=== PATIENT | male | born 1960 | race Caucasian/White ===

== ENCOUNTER → 2018-01-21 | Outpatient (CLI) | payer OTHER ==
[2018-01-21 08:12] LABS: ALANINE AMINOTRANSFERASE 94 U/L (21-72); ALKALINE PHOSPHATASE 76 U/L (38-126); ASPARTATE AMINO TRANSFERASE 37 U/L (17-59); BILIRUBIN,DIRECT 0.3 mg/dL (0.0-0.4); BILIRUBIN,TOTAL 0.7 mg/dL (0.2-1.3); CHOLESTEROL 158.67 mg/dL (0-200); CREATINE KINASE 97 U/L (55-170); TOTAL PROTEIN 6.6 g/dL (6.3-8.2); TRIGLYCERIDES 240 mg/dL (<150)
[2018-01-21 08:23] LABS: DIRECT LDL 90 mg/dL (<100)
== END ==
LOC: LAB 07:27
PROVIDERS: ATTEND Internal Medicine Cardiovascular Disease
DX: E78.2 Mixed hyperlipidemia (principal); R25.2 Cramp and spasm; Z79.899 Other long term (current) drug therapy
CPT/HCPCS: 36415; 80061; 80076; 82550

== ENCOUNTER → 2018-03-18 | Outpatient (CLI) | payer OTHER ==
[2018-03-18 07:07] LABS: ALANINE AMINOTRANSFERASE 89 U/L (21-72); ALBUMIN 4.1 g/dL (3.5-5.0); ALKALINE PHOSPHATASE 89 U/L (38-126); ASPARTATE AMINO TRANSFERASE 42 U/L (17-59); BILIRUBIN,DIRECT 0.3 mg/dL (0.0-0.4); BILIRUBIN,TOTAL 0.8 mg/dL (0.2-1.3); CHOLESTEROL 102.94 mg/dL (0-200); TOTAL PROTEIN 6.7 g/dL (6.3-8.2); TRIGLYCERIDES 153 mg/dL (<150)
[2018-03-18 07:18] LABS: DIRECT LDL 47 mg/dL (<100)
[2018-03-18 07:20] LABS: VLDL CHOLESTEROL 30.6 mg/dL (10-31)
== END ==
LOC: LAB 06:11
PROVIDERS: ATTEND Internal Medicine Cardiovascular Disease
DX: E78.2 Mixed hyperlipidemia (principal); R94.5 Abnormal results of liver function studies
CPT/HCPCS: 36415; 80061; 80076

== ENCOUNTER → 2018-06-11 | Outpatient (CLI) | payer OTHER ==
[2018-06-11 09:46] LABS: ALANINE AMINOTRANSFERASE 64 U/L (21-72); ALKALINE PHOSPHATASE 88 U/L (38-126); ANION GAP 9 (5-19); ASPARTATE AMINO TRANSFERASE 34 U/L (17-59); BILIRUBIN,DIRECT 0.3 mg/dL (0.0-0.4); BILIRUBIN,TOTAL 0.9 mg/dL (0.2-1.3); BLOOD UREA NITROGEN 16 mg/dL (7-20); CALCIUM 9.5 mg/dL (8.4-10.2); CARBON DIOXIDE 30 mmol/L (22-30); CHLORIDE 105 mmol/L (98-107); CHOLESTEROL 83.89 mg/dL (0-200); GLUCOSE 91 mg/dL (75-110); POTASSIUM 4.2 mmol/L (3.6-5.0); SODIUM 144.4 mmol/L (137-145); TOTAL PROTEIN 6.5 g/dL (6.3-8.2); TRIGLYCERIDES 120 mg/dL (<150)
[2018-06-11 09:57] LABS: DIRECT LDL 53 mg/dL (<100)
== END ==
LOC: LAB 08:35
PROVIDERS: ATTEND Internal Medicine Cardiovascular Disease
DX: E78.2 Mixed hyperlipidemia (principal); I10 Essential (primary) hypertension; Z79.899 Other long term (current) drug therapy
CPT/HCPCS: 36415; 80048; 80061; 80076

== ENCOUNTER → 2018-06-18 | Outpatient (CLI) | payer OTHER ==
[2018-06-18 10:20] LABS: HEMOGLOBIN 15.7 g/dL (13.5-17.0); MEAN CORPUSCULAR HEMOGLOBIN 30.9 pg (27.0-33.4); MEAN CORPUSCULAR HGB CONC 34.1 g/dL (32.0-36.0); MEAN CORPUSCULAR VOLUME 91 fl (80-97); PLATELET COUNT 207 10^3/uL (150-450); RED BLOOD COUNT 5.07 10^6/uL (4.35-5.55); RED CELL DISTRIBUTION WIDTH 14.6 % (11.5-14.0); WHITE BLOOD COUNT 9.1 10^3/uL (4.0-10.5)
[2018-06-18 10:23] LABS: APPEARANCE,URINE CLEAR; BILIRUBIN,URINE NEGATIVE (NEGATIVE); COLOR,URINE YELLOW; GLUCOSE, URINE NEGATIVE (NEGATIVE); KETONES,URINE TRACE mg/dL (NEGATIVE); LEUKOCYTE ESTERASE,URINE NEGATIVE (NEGATIVE); NITRITE,URINE NEGATIVE (NEGATIVE); PROTEIN,URINE NEGATIVE (NEGATIVE); URINE SPECIFIC GRAVITY 1.011; UROBILINOGEN,URINE NEGATIVE mg/dL (<2.0)
[2018-06-18 10:48] LABS: ALANINE AMINOTRANSFERASE 85 U/L (21-72); ALBUMIN 4.4 g/dL (3.5-5.0); ALKALINE PHOSPHATASE 108 U/L (38-126); ANION GAP 13 (5-19); ASPARTATE AMINO TRANSFERASE 43 U/L (17-59); BILIRUBIN,DIRECT 0.3 mg/dL (0.0-0.4); BILIRUBIN,TOTAL 0.8 mg/dL (0.2-1.3); BLOOD UREA NITROGEN 14 mg/dL (7-20); CALCIUM 9.7 mg/dL (8.4-10.2); CARBON DIOXIDE 29 mmol/L (22-30); CHLORIDE 102 mmol/L (98-107); CREATINE KINASE 44 U/L (55-170); GLUCOSE 93 mg/dL (75-110); SODIUM 144.2 mmol/L (137-145); TOTAL PROTEIN 7.1 g/dL (6.3-8.2); URIC ACID 5.2 mg/dL (3.5-8.5)
[2018-06-18 10:53] LABS: POTASSIUM 4.3 mmol/L (3.6-5.0)
== END ==
LOC: LAB 09:53
PROVIDERS: ATTEND Internal Medicine Cardiovascular Disease
DX: I82.409 Acute embolism and thrombosis of unspecified deep veins of unspecified lower extremity (principal); E66.9 Obesity, unspecified; Z71.3 Dietary counseling and surveillance; Z79.899 Other long term (current) drug therapy; Z79.01 Long term (current) use of anticoagulants
CPT/HCPCS: 36415; 80048; 80076; 81001; 82272; 82306; 82550; 83036; 83735; 84443; 84550; 85027; 85730

== ENCOUNTER → 2018-10-06 | Outpatient (CLI) | payer OTHER ==
[2018-10-06 07:42] LABS: HEMATOCRIT 43.4 % (37.9-51.0); HEMOGLOBIN 14.8 g/dL (13.5-17.0); MEAN CORPUSCULAR HEMOGLOBIN 31.1 pg (27.0-33.4); MEAN CORPUSCULAR HGB CONC 34.2 g/dL (32.0-36.0); MEAN CORPUSCULAR VOLUME 91 fl (80-97); PLATELET COUNT 194 10^3/uL (150-450); RED BLOOD COUNT 4.77 10^6/uL (4.35-5.55); RED CELL DISTRIBUTION WIDTH 14.6 % (11.5-14.0); WHITE BLOOD COUNT 8.7 10^3/uL (4.0-10.5)
[2018-10-06 08:13] LABS: ALANINE AMINOTRANSFERASE 62 U/L (21-72); ALBUMIN 4.3 g/dL (3.5-5.0); ALKALINE PHOSPHATASE 82 U/L (38-126); ANION GAP 10 (5-19); ASPARTATE AMINO TRANSFERASE 32 U/L (17-59); BILIRUBIN,DIRECT 0.2 mg/dL (0.0-0.4); BILIRUBIN,TOTAL 0.6 mg/dL (0.2-1.3); BLOOD UREA NITROGEN 27 mg/dL (7-20); CALCIUM 10.7 mg/dL (8.4-10.2); CARBON DIOXIDE 29 mmol/L (22-30); CHLORIDE 106 mmol/L (98-107); CHOLESTEROL 96.19 mg/dL (0-200); GLUCOSE 92 mg/dL (75-110); POTASSIUM 4.7 mmol/L (3.6-5.0); SODIUM 144.7 mmol/L (137-145); TRIGLYCERIDES 154 mg/dL (<150); URIC ACID 4.1 mg/dL (3.5-8.5)
[2018-10-06 08:24] LABS: DIRECT LDL 46 mg/dL (<100); VLDL CHOLESTEROL 30.8 mg/dL (10-31)
== END ==
LOC: LAB 07:18
PROVIDERS: ATTEND Internal Medicine Cardiovascular Disease
DX: E78.2 Mixed hyperlipidemia (principal); R94.5 Abnormal results of liver function studies; R07.9 Chest pain, unspecified; I10 Essential (primary) hypertension; Z79.899 Other long term (current) drug therapy
CPT/HCPCS: 36415; 80048; 80061; 80076; 83036; 83525; 83735; 84443; 84550; 85027

== ENCOUNTER → 2018-11-10 | Outpatient (CLI) | payer OTHER ==
[2018-11-10 08:21] LABS: HEMOGLOBIN 14.4 g/dL (13.5-17.0); MEAN CORPUSCULAR HEMOGLOBIN 31.3 pg (27.0-33.4); MEAN CORPUSCULAR HGB CONC 34.4 g/dL (32.0-36.0); MEAN CORPUSCULAR VOLUME 91 fl (80-97); PLATELET COUNT 170 10^3/uL (150-450); RED BLOOD COUNT 4.61 10^6/uL (4.35-5.55); RED CELL DISTRIBUTION WIDTH 14.1 % (11.5-14.0); WHITE BLOOD COUNT 7.6 10^3/uL (4.0-10.5)
[2018-11-10 08:44] LABS: ANION GAP 6 (5-19); BLOOD UREA NITROGEN 25 mg/dL (7-20); CALCIUM 10.5 mg/dL (8.4-10.2); CARBON DIOXIDE 27 mmol/L (22-30); CHLORIDE 109 mmol/L (98-107); GLUCOSE 86 mg/dL (75-110); SODIUM 142.3 mmol/L (137-145)
[2018-11-10 08:45] LABS: ALANINE AMINOTRANSFERASE 58 U/L (21-72); ALKALINE PHOSPHATASE 72 U/L (38-126); ASPARTATE AMINO TRANSFERASE 27 U/L (17-59); BILIRUBIN,DIRECT 0.2 mg/dL (0.0-0.4); BILIRUBIN,TOTAL 0.5 mg/dL (0.2-1.3); TOTAL PROTEIN 6.4 g/dL (6.3-8.2)
== END ==
LOC: OD 07:21
PROVIDERS: ATTEND Internal Medicine Cardiovascular Disease
DX: E83.52 Hypercalcemia (principal); E66.01 Morbid (severe) obesity due to excess calories; R07.9 Chest pain, unspecified; I10 Essential (primary) hypertension; R94.5 Abnormal results of liver function studies; Z79.899 Other long term (current) drug therapy
CPT/HCPCS: 36415; 80048; 80076; 83525; 85027

== ENCOUNTER → 2019-03-09 | Outpatient (CLI) | payer OTHER ==
[2019-03-09 08:25] LABS: ALKALINE PHOSPHATASE 60 U/L (38-126); ANION GAP 7 (5-19); ASPARTATE AMINO TRANSFERASE 20 U/L (17-59); BILIRUBIN,DIRECT 0.3 mg/dL (0.0-0.4); BILIRUBIN,TOTAL 0.7 mg/dL (0.2-1.3); BLOOD UREA NITROGEN 20 mg/dL (7-20); CALCIUM 9.7 mg/dL (8.4-10.2); CARBON DIOXIDE 28 mmol/L (22-30); CHLORIDE 105 mmol/L (98-107); GLUCOSE 100 mg/dL (75-110); TOTAL PROTEIN 6.5 g/dL (6.3-8.2); TRIGLYCERIDES 106 mg/dL (<150)
[2019-03-09 08:36] LABS: DIRECT LDL 126 mg/dL (<100)
== END ==
LOC: LAB 07:41
PROVIDERS: ATTEND Internal Medicine Cardiovascular Disease
DX: E78.2 Mixed hyperlipidemia (principal); R94.5 Abnormal results of liver function studies; I10 Essential (primary) hypertension; Z79.899 Other long term (current) drug therapy
CPT/HCPCS: 36415; 80048; 80061; 80076; 83525

== ENCOUNTER → 2019-06-17 | Outpatient (CLI) | payer OTHER ==
[2019-06-17 08:35] LABS: ALBUMIN 4.3 g/dL (3.5-5.0); ALKALINE PHOSPHATASE 64 U/L (38-126); ANION GAP 8 (5-19); ASPARTATE AMINO TRANSFERASE 28 U/L (17-59); BILIRUBIN,DIRECT 0.1 mg/dL (0.0-0.4); BILIRUBIN,TOTAL 0.8 mg/dL (0.2-1.3); BLOOD UREA NITROGEN 17 mg/dL (7-20); CALCIUM 9.9 mg/dL (8.4-10.2); CARBON DIOXIDE 28 mmol/L (22-30); CHLORIDE 104 mmol/L (98-107); CHOLESTEROL 95.15 mg/dL (0-200); GLUCOSE 92 mg/dL (75-110); POTASSIUM 4.1 mmol/L (3.6-5.0); TOTAL PROTEIN 6.9 g/dL (6.3-8.2); TRIGLYCERIDES 71 mg/dL (<150)
[2019-06-17 08:48] LABS: DIRECT LDL 44 mg/dL (<100)
== END ==
LOC: LAB 07:38
PROVIDERS: ATTEND Internal Medicine Cardiovascular Disease
DX: I10 Essential (primary) hypertension (principal); E78.2 Mixed hyperlipidemia; E88.81 Metabolic syndrome and other insulin resistance; R94.5 Abnormal results of liver function studies; E66.01 Morbid (severe) obesity due to excess calories; Z79.899 Other long term (current) drug therapy
CPT/HCPCS: 36415; 80048; 80061; 80076; 82306; 82607; 83525; 84443

== ENCOUNTER → 2019-09-15 | Outpatient (CLI) | payer OTHER ==
[2019-09-15 09:34] LABS: ALBUMIN 4.4 g/dL (3.5-5.0); ALKALINE PHOSPHATASE 60 U/L (38-126); ANION GAP 11 (5-19); ASPARTATE AMINO TRANSFERASE 27 U/L (17-59); BILIRUBIN,DIRECT 0.2 mg/dL (0.0-0.4); BILIRUBIN,TOTAL 0.6 mg/dL (0.2-1.3); BLOOD UREA NITROGEN 19 mg/dL (7-20); CALCIUM 10.3 mg/dL (8.4-10.2); CARBON DIOXIDE 29 mmol/L (22-30); CHLORIDE 104 mmol/L (98-107); CHOLESTEROL 98.16 mg/dL (0-200); GLUCOSE 88 mg/dL (75-110); POTASSIUM 4.2 mmol/L (3.6-5.0); TOTAL PROTEIN 7.1 g/dL (6.3-8.2); TRIGLYCERIDES 93 mg/dL (<150)
[2019-09-15 09:45] LABS: DIRECT LDL 48 mg/dL (<100)
== END ==
LOC: OD 07:40
PROVIDERS: ATTEND Internal Medicine Cardiovascular Disease
DX: R94.5 Abnormal results of liver function studies (principal); E78.2 Mixed hyperlipidemia; I10 Essential (primary) hypertension; Z79.899 Other long term (current) drug therapy
CPT/HCPCS: 36415; 80048; 80061; 80076; 83735

== ENCOUNTER → 2020-06-02 | Outpatient (CLI) | payer OTHER ==
[2020-06-02 08:20] LABS: HEMATOCRIT 42.6 % (37.9-51.0); HEMOGLOBIN 14.6 g/dL (13.5-17.0); MEAN CORPUSCULAR HEMOGLOBIN 30.6 pg (27.0-33.4); MEAN CORPUSCULAR HGB CONC 34.2 g/dL (32.0-36.0); MEAN CORPUSCULAR VOLUME 90 fl (80-97); PLATELET COUNT 172 10^3/uL (150-450); RED BLOOD COUNT 4.76 10^6/uL (4.35-5.55); RED CELL DISTRIBUTION WIDTH 14.3 % (11.5-14.0); WHITE BLOOD COUNT 6.5 10^3/uL (4.0-10.5)
[2020-06-02 08:51] LABS: ALBUMIN 4.3 g/dL (3.5-5.0); ALKALINE PHOSPHATASE 54 U/L (38-126); ANION GAP 9 (5-19); ASPARTATE AMINO TRANSFERASE 29 U/L (17-59); BILIRUBIN,TOTAL 0.5 mg/dL (0.2-1.3); BLOOD UREA NITROGEN 21 mg/dL (7-20); CALCIUM 10.2 mg/dL (8.4-10.2); CARBON DIOXIDE 28 mmol/L (22-30); CHLORIDE 104 mmol/L (98-107); GLUCOSE 83 mg/dL (75-110); TOTAL PROTEIN 6.9 g/dL (6.3-8.2); TRIGLYCERIDES 110 mg/dL (<150)
[2020-06-02 09:02] LABS: DIRECT LDL 66 mg/dL (<100)
[2020-06-03 07:09] LABS: INSULIN 9.9 uIU/mL (2.6-24.9)
--- OUTSIDE RECORDS SUMMARY | 2020-06-03 14:57 | XMS REPORT ---
:1960 Demographics Address [address] [place] [address] Preferred Language [id number] Marital Status Unknown Yazidi Affiliation Unknown Race Unknown Additional Race(s) Unavailable Ethnic Group Unknown Author Organization [facility] Address [facility] [place] [facility] [address] [place] [address] Care Team Providers Name Role Phone Clemente Attending Clinician Unavailable Geraldo Attending Clinician Unavailable Clemente Attending Clinician Unavailable Allergies, Adverse Reactions, Alerts Allergy Allergy Status Severity Reaction(s) Onset Inactive Treating C omments Name Type Date Date Clinician Aspirin Allergy to Active Other 2012-08 substance - 00:00:0 0 Caffeine Allergy to Active 2012-08 substance - 00:00:0 0 Medications Ordered Filled Start Stop Current Ordering Indication Dosage Frequency Signature Comments Components Medication Medication Date Date Medication? Clinician (SIG) Name Name Advair No Advair Diskus 250 Diskus 250 mcg-50 mcg-50 mcg/dose mcg/dose powder for powder for inhalation inhalation 1 puff 1 puff twice a day twice a by day by inhalation inhalation route. route. atenolol No atenolol 100 mg 100 mg tablet 1 po tablet 1 qd po qd atenolol 50 No atenolol mg tablet 50 mg 1 tablet by tablet 1 oral route. tablet by oral route. atorvastati No atorvastat n 80 mg in 80 mg tablet 1 tablet 1 tablet by tablet by oral route. oral route. cefdinir No cefdinir 300 mg 300 mg capsule 1 capsule 1 capsule capsule every 12 every 12 hours by hours by oral route. oral route. cephalexin No cephalexin 500 mg 500 mg capsule 1 capsule 1 capsule capsule every 6 every 6 hours by hours by oral route. oral route. ciprofloxac No ciprofloxa in 500 mg sina 500 mg tablet tablet fexofenadin No fexofenadi e 180 mg ne 180 mg tablet qd tablet qd fluconazole No fluconazol 100 mg e 100 mg tablet tablet fluconazole No fluconazol 150 mg e 150 mg tablet tablet fluticasone No fluticason propionate e 50 propionate mcg/actuati 50 on nasal mcg/actuat spray,suspe ion nasal nsion 1 spray,susp spray by ension 1 nasal spray by route. nasal route. gemfibrozil No gemfibrozi 600 mg l 600 mg tablet tablet hydrocodone No hydrocodon 5 e 5 mg-acetamin mg-acetami ophen 325 nophen 325 mg tablet mg tablet ketoconazol No ketoconazo e 2 % le 2 % topical topical cream cream levofloxaci No levofloxac n 500 mg in 500 mg tablet tablet loratadine No loratadine 10 mg 10 mg tablet 1 tablet 1 tablet by tablet by oral route. oral route. metformin No metformin 500 mg 500 mg tablet Take tablet 1 tablet Take 1 twice a day tablet by oral twice a route. day by oral route. metronidazo No metronidaz le 500 mg ole 500 mg tablet 1 tablet 1 tablet tablet twice a day twice a by oral day by route. oral route. montelukast No montelukas 10 mg t 10 mg tablet 1 po tablet 1 qd po qd Nitrostat No Nitrostat 0.4 mg 0.4 mg sublingual sublingual tablet prn tablet prn omega-3 No omega-3 acid ethyl acid ethyl esters 1 esters 1 gram gram capsule 2 capsule 2 po BID po BID ondansetron No ondansetro 8 mg n 8 mg disintegrat disintegra ing tablet ting tablet oxycodone-a No oxycodone- cetaminophe acetaminop n 5 mg-325 hen 5 mg tablet mg-325 mg 1 tablet tablet 1 every 6 tablet hours by every 6 oral route. hours by oral route. pantoprazol No pantoprazo e 40 mg le 40 mg tablet,stephen tablet,del yed release ayed Take 1 release tablet Take 1 every day tablet by oral every day route. by oral route. prednisone No prednisone 20 mg 20 mg tablet tablet Requip XL 4 No 2tablet Requip XL mg 4 mg tablet,exte tablet,ext nded ended release 2 release 2 tablets by tablets by oral route. oral route. ropinirole No ropinirole ER 2 mg ER 2 mg tablet,exte tablet,ext nded ended release 24 release 24 hr hr ropinirole No ropinirole ER 6 mg ER 6 mg tablet,exte tablet,ext nded ended release 24 release 24 hr 1 po qd hr 1 po qd testosteron No testostero e 10 mg/0.5 ne 10 gram/actuat mg/0.5 ion gram/actua transdermal tion gel pump transderma 40 mg by l gel pump transderm. 40 mg by route. transderm. route. Xarelto 20 No Xarelto 20 mg tablet mg tablet 1 tablet by 1 tablet oral route. by oral route. Zetia 10 mg No Zetia 10 tablet 1 po mg tablet qd 1 po qd Advair No Advair Diskus 250 Diskus 250 mcg-50 mcg-50 mcg/dose mcg/dose powder for powder for inhalation inhalation 1 puff 1 puff twice a day twice a by day by inhalation inhalation route. route. Fortesta 10 No Fortesta mg/0.5 10 mg/0.5 gram/actuat gram/actua ion tion transdermal transderma gel pump l gel pump Apply by Apply by transdermal transderma route. l route. acetaminoph No acetaminop en 325 mg hen 325 mg tablet tablet ceftriaxone No ceftriaxon 1 gram e 1 gram solution solution for for injection injection tamsulosin No tamsulosin 0.4 mg 0.4 mg capsule capsule Problems Condition Condition Condition Status Onset Resolution Last Treatin g Comments Name Details Category Date Date Treatment Clinician Date Pain of Pain of Problem Active left hip Left Hip 4-18 joint Joint 00:00: 00 Parkinson's Parkinson's Problem Active disease Disease 01-15 00:00: 00 Pain in Pain in Problem Active scrotum Scrotum 01-15 00:00: 00 Paresthesia Paresthesia Problem Active 07-27 00:00: 00 Cough Cough Problem Inactiv e 07-27 00:00: 00 Dyslipidemi Dyslipidemi Problem Active a a 03-03 00:00: 00 Rectal Rectal Problem Active hemorrhage Hemorrhage 03-03 00:00: 00 Acute low Acute Low Problem Active back pain Back Pain 11-27 00:00: 00 Mixed Mixed Problem Active hyperlipide Hyperlipide 12-02 pau pau 00:00: 00 Hypertensiv Hypertensiv Problem Active e disorder e Disorder 12-02 00:00: 00 Deep venous Deep Venous Problem Active thrombosis Thrombosis 12-02 00:00: 00 Allergic Allergic Problem Active rhinitis Rhinitis 12-02 00:00: 00 Asthma Asthma Problem Active 12-02 00:00: 00 Arthritis Arthritis Problem Active 12-02 00:00: 00 Sleep apnea Sleep Apnea Problem Active 12-02 00:00: 00 Headache Headache Problem Active 12-02 00:00: 00 Hyperlipide Hyperlipide Problem Active pau pau Essential Essential Problem Active hypertensio Hypertensio n n Degeneratio Degeneratio Problem Active n of lumbar n of Lumbar interverteb Interverteb ral disc ral Disc Low back Low Back Problem Active pain Pain Sciatica Sciatica Problem Active Lumbar Lumbar Problem Active sprain Sprain History of History of Problem Active neoplasm Neoplasm Lumbar Lumbar Problem Active AND/OR AND/OR sacral Sacral arthritis Arthritis Procedures Procedure Date / Time Performed Performing Clinician Devic e OFFICE/OUTPATIENT VISIT EST 2020-04-08 16:30:00 OFFICE/OUTPATIENT VISIT EST 2019-08-15 12:30:00 OFFICE/OUTPATIENT VISIT EST 2019-07-08 16:00:00 Biopsy of Prostate 2018-12-22 00:00:00 OFFICE/OUTPATIENT VISIT EST 2018-11-26 13:30:00 RADIOLOGIC EXAM HIP, UNILATERAL 2-3 2018-09-26 00:00:00 VIEWS OFFICE/OUTPATIENT VISIT EST 2018-09-25 14:15:00 OFFICE/OUTPATIENT VISIT EST 2018-07-26 09:30:00 OFFICE/OUTPATIENT VISIT EST 2018-02-05 14:30:00 OFFICE/OUTPATIENT VISIT EST 2018-01-20 15:30:00 OFFICE/OUTPATIENT VISIT EST 2018-01-02 13:45:00 OFFICE/OUTPATIENT VISIT EST 2017-10-15 10:00:00 OFFICE/OUTPATIENT VISIT EST 2017-07-08 09:45:00 OFFICE/OUTPATIENT VISIT EST 2017-03-12 14:00:00 OFFICE/OUTPATIENT VISIT EST 2017-03-02 09:15:00 Colonoscopy 2015-09-20 00:00:00 Hernia Repair 2013-04-27 00:00:00 Shoulder Surgery 2008-07-22 00:00:00 Hand Surgery 2005-07-22 00:00:00 Other 1993-07-22 00:00:00 Vasectomy Results Test Description Test Time Test Comments Text Results Atomic Results Result Comments PSA, TOTAL 2020-04-12 00:00:00 3.1 CBC (H/H, RBC, INDICES, WBC, PLT) 2020-04-12 00:00:00 Test Item Value Reference Range Comments MCH (test code = 42521225) 30.2 pg 27.0-33.0 RED BLOOD CELL COUNT (test code = 57619477) 5.00 Million/uL 4.20 -5.80 MCV (test code = 43144020) 91.4 fL 80.0-100.0 MPV (test code = 34891869) 11.3 fL 7.5-12.5 WHITE BLOOD CELL COUNT (test code = 21156866) 4.9 Thousand/uL 3. 8-10.8 HEMOGLOBIN (test code = 84370503) 15.1 g/dL 13.2-17.1 MCHC (test code = 58726138) 33.0 g/dL 32.0-36.0 PLATELET COUNT (test code = 92894657) 173 Thousand/uL 140-400 RDW (test code = 46319901) 12.9 % 11.0-15.0 HEMATOCRIT (test code = 39240095) 45.7 % 38.5-50.0 COMPREHENSIVE METABOLIC [id number] 00:00:00 Test Item Value Reference Range Comments BUN/CREATININE RATIO (test code = NOT APPLICABLE (calc) -[id number]) eGFR (test code = 110 mL/min/1.73m2 > OR = 60 17646878) BILIRUBIN, TOTAL (test code = 0.5 mg/dL 0.2-1.2 62421136) ALBUMIN/GLOBULIN RATIO (test code = 1.8 (calc) 1.0-2.5 94024637) SODIUM (test code = 48683236) 142 mmol/L 135-146 GLOBULIN (test code = 58284938) 2.3 g/dL (calc) 1.9-3.7 AST (test code = 56864084) 16 U/L 10-35 UREA NITROGEN (BUN) (test code = 24 mg/dL 7-25 80234878) PROTEIN, TOTAL (test code = 87047110) 6.5 g/dL 6.1-8.1 ALBUMIN (test code = 49498753) 4.2 g/dL 3.6-5.1 CALCIUM (test code = 71475126) 9.3 mg/dL 8.6-10.3 CHLORIDE (test code = 27066352) 109 mmol/L 98-110 GLUCOSE (test code = 25033938) 97 mg/dL 65-99 ALT (test code = 47370083) 27 U/L 9-46 ALKALINE PHOSPHATASE (test code = 50 U/L 35-144 ) eGFR NON-AFR. KENYAN (test code = 95 mL/min/1.73m2 > OR = 60 71127943) CREATININE (test code = 85035439) 0.84 mg/dL 0.70-1.25 POTASSIUM (test code = 57717780) 4.0 mmol/L 3.5-5.3 CARBON DIOXIDE (test code = 32216308) 28 mmol/L 20-32 HEMOGLOBIN A1c WITH [id number] 00:00:00 Test Item Value Reference Range Comments eAG (mmol/L) (test code = 62156523) 5.5 (calc) eAG (mg/dL) (test code = 67802764) 100 (calc) HEMOGLOBIN A1c (test code = 4548-4) 5.1 % of total Hgb <5.7 LIPID PANEL, [id number] 00:00:00 Test Item Value Reference Range Comments NON HDL CHOLESTEROL (test code = 34351546) 66 mg/dL (calc) <130 HDL CHOLESTEROL (test code = 50983121) 39 mg/dL > OR = 40 LDL-CHOLESTEROL (test code = 22932462) 50 mg/dL (calc) CHOL/HDLC RATIO (test code = 40129077) 2.7 (calc) <5.0 CHOLESTEROL, TOTAL (test code = 82893777) 105 mg/dL <200 TRIGLYCERIDES (test code = 07872122) 79 mg/dL <150 ALBUMIN, RANDOM URINE W/O [id number] 00:00:00 Test Item Value Reference Range Comments ALBUMIN, URINE (test code = 41064627) 0.5 mg/dL 17162099 (test code = 93333906) See Below TESTOSTERONE, TOTAL, MALES (ADULT), [id number] 00:00:[id number] 00:00:[id number] 00:00:001.31C-REACTIVE [id number] 09:27:0015.6 CBC (INCLUDES DIFF/PLT)2019-07-14 09:27:00 Test Item Value Reference Range Comments PLATELET COUNT (test code = 279 Thousand/uL 140-400 48175501) MCV (test code = 21394394) 92.1 fL 80.0-100.0 COMMENT(S) (test code = Final report pending [id number]) pathologist review HEMOGLOBIN (test code = 14.0 g/dL 13.2-17.1 28011348) NEUTROPHILS (test code = 67.3 % 10127702) MCHC (test code = 23187766) 32.5 g/dL 32.0-36.0 LYMPHOCYTES (test code = 24.8 % 98899682) MCH (test code = 35213139) 29.9 pg 27.0-33.0 RDW (test code = 95442276) 12.7 % 11.0-15.0 ABSOLUTE NEUTROPHILS (test 7807 cells/uL 9605-6379 code = 62624869) ABSOLUTE EOSINOPHILS (test 46 cells/uL 15-500 code = 09056891) MPV (test code = 38645013) 10.3 fL 7.5-12.5 ABSOLUTE MONOCYTES (test code 835 cells/uL 200-950 = 48763435) WHITE BLOOD CELL COUNT (test 11.6 Thousand/uL 3.8-10.8 code = 06545316) BASOPHILS (test code = 0.3 % 48936652) ABSOLUTE BASOPHILS (test code 35 cells/uL 0-200 = 18102663) HEMATOCRIT (test code = 43.1 % 38.5-50.0 79882562) EOSINOPHILS (test code = 0.4 % 10662985) RED BLOOD CELL COUNT (test 4.68 Million/uL 4.20-5.80 code = 63861808) MONOCYTES (test code = 7.2 % 78302167) ABSOLUTE LYMPHOCYTES (test 2877 cells/uL 850-3900 code = 07539112) BASIC METABOLIC [id number] 13:27:00 Test Item Value Reference Range Comments eGFR (test code = 100 mL/min/1.73m2 > OR = 60 56055971) POTASSIUM (test code = 82808576) 4.3 mmol/L 3.5-5.3 CALCIUM (test code = 84822308) 9.9 mg/dL 8.6-10.3 eGFR NON-AFR. KENYAN (test code = 86 mL/min/1.73m2 > OR = 60 63859358) CREATININE (test code = 39921683) 0.95 mg/dL 0.70-1.25 SODIUM (test code = 12580214) 140 mmol/L 135-146 BUN/CREATININE RATIO (test code = NOT APPLICABLE (calc) 6-22 ) CARBON DIOXIDE (test code = 44425447) 26 mmol/L 20-32 UREA NITROGEN (BUN) (test code = 23 mg/dL 7-25 ) GLUCOSE (test code = 38295420) 110 mg/dL 65-139 CHLORIDE (test code = 41261438) 104 mmol/L 98-110 C-REACTIVE [id number] 13:27:0098.3CBC (INCLUDES DIFF/PLT)2019-07-10 13:27:00 Test Item Value Reference Range Comments MCHC (test code = 00092315) 33.6 g/dL 32.0-36.0 HEMATOCRIT (test code = 57370262) 41.4 % 38.5-50.0 RDW (test code = 76598606) 12.6 % 11.0-15.0 ABSOLUTE LYMPHOCYTES (test code = 65854666) 1195 cells/uL 850- 3900 ABSOLUTE NEUTROPHILS (test code = 16401378) 8879 cells/uL 1500 -7800 ABSOLUTE BASOPHILS (test code = 14003195) 21 cells/uL 0-200 ABSOLUTE EOSINOPHILS (test code = 23425115) 10 cells/uL 15-5 00 HEMOGLOBIN (test code = 50316308) 13.9 g/dL 13.2-17.1 MPV (test code = 11401467) 11.5 fL 7.5-12.5 MONOCYTES (test code = 23993126) 1.9 % MCH (test code = 39296837) 30.5 pg 27.0-33.0 BASOPHILS (test code = 43679690) 0.2 % ABSOLUTE MONOCYTES (test code = 64108618) 196 cells/uL 200-95 0 WHITE BLOOD CELL COUNT (test code = 10.3 Thousand/uL 3.8-10.8 73281006) MCV (test code = 31258122) 91.0 fL 80.0-100.0 PLATELET COUNT (test code = 54686974) 232 Thousand/uL 140-400 RED BLOOD CELL COUNT (test code = 55620644) 4.55 Million/uL 4.20 -5.80 LYMPHOCYTES (test code = 60820744) 11.6 % NEUTROPHILS (test code = 39207783) 86.2 % EOSINOPHILS (test code = 98797075) 0.1 % Rapid Influenza B\S\2019-07-08 16:00:00 Test Item Value Reference Range Comments Influenza B (test code = FLUB) negative Rapid Influenza A\S\2019-07-08 16:00:00 Test Item Value Reference Range Comments Influenza A (test code = FLUA) negative SED RATE BY MODIFIED [id number] 00:00:002COMPREHENSIVE METABOLIC PANEL 2018-02-06 00:00:00 Test Item Value Reference Range Comments AST (test code = 88194450) 32 U/L 10-35 ALBUMIN (test code = 53900995) 4.0 g/dL 3.6-5.1 BILIRUBIN, TOTAL (test code = 0.7 mg/dL 0.2-1.2 06336388) CHLORIDE (test code = 14692665) 105 mmol/L 98-110 BUN/CREATININE RATIO (test code = NOT APPLICABLE (calc) 6-22 57331151) ALBUMIN/GLOBULIN RATIO (test code = 1.7 (calc) 1.0-2.5 04409971) CALCIUM (test code = 95653748) 9.4 mg/dL 8.6-10.3 CREATININE (test code = 81973753) 1.16 mg/dL 0.70-1.33 GLUCOSE (test code = 42580746) 86 mg/dL 65-139 eGFR (test code = 79 mL/min/1.73m2 > OR = 60 50753893) ALKALINE PHOSPHATASE (test code = 78 U/L 40-115 96083103) ALT (test code = 20491424) 73 U/L 9-46 PROTEIN, TOTAL (test code = 94974735) 6.3 g/dL 6.1-8.1 UREA NITROGEN (BUN) (test code = 12 mg/dL 7-25 68009834) CARBON DIOXIDE (test code = 86987430) 27 mmol/L 20-31 eGFR NON-AFR. KENYAN (test code = 69 mL/min/1.73m2 > OR = 60 26621046) SODIUM (test code = 75204271) 142 mmol/L 135-146 POTASSIUM (test code = 47263742) 4.0 mmol/L 3.5-5.3 GLOBULIN (test code = 04359366) 2.3 g/dL (calc) 1.9-3.7 [id number] 00:00:[id number] 00:00:[id number] 00:00:0041 PSA, [id number] 00:01:00 Test Item Value Reference Range Comments PSA, Total (test code = 226615) 2.2 ng/mL <=4.0 [id number] 00:01:00 Test Item Value Reference Range Comments TSH (test code = 154241) 1.05 mIU/L 0.40-4.50 CMP with Estimated [id number] 00:01:00 Test Item Value Reference Range Comments Chloride (test code = 121402) 106 mmol/L 98-110 Albumin (test code = 011851) 4.1 g/dL 3.6-5.1 Sodium (test code = 261272) 140 mmol/L 135-146 Potassium (test code = 312419) 4.2 mmol/L 3.5-5.3 Creatinine (test code = 476079) 1.09 mg/dL 0.70-1.33 AST/SGOT (test code = 046860) 34 U/L 10-35 Est GFR, NonAfrican Filipino (test code = 872563) 74 mL/min >=60 Est GFR, (test code = 937115) 85 mL/min > =60 Calcium (test code = 593896) 9.4 mg/dL 8.6-10.3 BUN (test code = 066554) 11 mg/dL 7-25 Glucose (test code = 741429) 186 mg/dL 65-99 CO2 (test code = 253425) 23 mmol/L 20-31 Bilirubin, Total (test code = 282961) 0.7 mg/dL 0.2-1.2 ALT/SGPT (test code = 685644) 81 U/L 9-46 Alkaline Phosphatase (test code = 772534) 76 U/L 40-115 Total Protein (test code = 920353) 6.3 g/dL 6.1-8.1 Hemoglobin A1c with [id number] 00:01:00 Test Item Value Reference Range Comments eAG (calc) (test code = 746727) 200 mg/dL Hemoglobin A1C (test code = 813429) 8.6 % <5.7 Lipid [id number] 00:01:00 Test Item Value Reference Range Comments Total Chol/HDL Ratio (test code = 030944) 6.0 Ratio <5.0 LDL Cholesterol (Calc) (test code = 617966) 93 mg/dL <100 Triglycerides (test code = 947164) 257 mg/dL <150 HDL Cholesterol (test code = 908292) 29 mg/dL >40 Cholesterol (test code = 995995) 173 mg/dL <200 VLDL Cholesterol (Calc) (test code = 878666) 51 mg/dL <30 [id number] 00:01:00 Test Item Value Reference Range Comments Lipase (test code = 433639) 15 U/L 7-60 [id number] 00:01:00 Test Item Value Reference Range Comments Amylase (test code = 633182) 45 U/L 0-105 CBC with [id number] 00:01:00 Test Item Value Reference Range Comments RBC (test code = 707914) 5.38 MIL/uL 4.20-5.80 Neutrophils % (test code = 49 % 326777) MCH (test code = 548602) 29.6 pg 27.0-33.0 Hematocrit (test code = 873625) 47.9 % 38.5-50.0 Absolute [place] (test code = 684 cells/uL 200-950 828819) Absolute Eos (test code = 76 cells/uL 15-500 363800) Smear Review (test code = Criteria for review not met 654562) Absolute Lymph (test code = 3116 cells/uL 850-3900 586525) Absolute Baso (test code = 0 cells/uL 0-200 898572) Hemoglobin (test code = 016249) 15.9 g/dL 13.2-17.1 MPV (test code = 895282) 11.6 fL 7.5-12.5 Platelet Count (test code = 228 K/uL 140-400 560692) WBC (test code = 021499) 7.6 K/uL 3.8-10.8 Lymph % (test code = 563654) 41 % Eos % (test code = 093878) 1 % MCHC (test code = 114794) 33.2 g/dL 32.0-36.0 Baso % (test code = 069799) 0 % MCV (test code = 006902) 89.0 fL 80.0-100.0 Absolute Neut (test code = 3724 cells/uL 9959-1027 644885) RDW (test code = 920828) 14.2 % 11.0-15.0 [place] % (test code = 308024) 9 % CMP with Estimated [id number] 00:01:00 Test Item Value Reference Range Comments Chloride (test code = 212002) 105 mmol/L 98-110 Total Protein (test code = 819247) 6.8 g/dL 6.1-8.1 Albumin (test code = 872370) 4.2 g/dL 3.6-5.1 Est GFR, (test code = 542598) 84 mL/min > =60 Creatinine (test code = 154107) 1.11 mg/dL 0.70-1.33 Est GFR, NonAfrican Filipino (test code = 337514) 73 mL/min >=60 Calcium (test code = 855757) 9.9 mg/dL 8.6-10.3 Sodium (test code = 895870) 139 mmol/L 135-146 Potassium (test code = 671160) 4.2 mmol/L 3.5-5.3 AST/SGOT (test code = 733249) 28 U/L 10-35 Bilirubin, Total (test code = 799920) 0.5 mg/dL 0.2-1.2 BUN (test code = 718072) 12 mg/dL 7-25 CO2 (test code = 766605) 26 mmol/L 20-31 Glucose (test code = 649358) 107 mg/dL 65-99 ALT/SGPT (test code = 163507) 65 U/L 9-46 Alkaline Phosphatase (test code = 784899) 61 U/L 40-115 C-Reactive Protein (CRP)2017-03-04 00:01:00 Test Item Value Reference Range Comments CRP (C-Reactive Protein) (test code = 386397) <0.5 mg/dL <0 .60 C-Reactive Protein (CRP)2016-08-20 00:01:00 Test Item Value Reference Range Comments CRP (C-Reactive Protein) (test code = 826718) <0.5 mg/dL <0 .60 CBC with [id number] 00:01:00 Test Item Value Reference Range Comments Hematocrit (test code = 420252) 45.8 % 39.0-52.0 RDW (test code = 852019) 14.2 % 11.5-15.5 RBC (test code = 051086) 5.11 MIL/uL 4.22-5.81 Granulocyte % (test code = 137430) 56 % 43-77 Absolute Gran (test code = 785460) 5.2 K/uL 1.7-7.7 Lymph % (test code = 864486) 36 % 12-46 Absolute Eos (test code = 223900) 0.1 K/uL 0.0-0.7 Hemoglobin (test code = 683067) 15.9 g/dL 13.0-17.0 [place] % (test code = 020913) 7 % 3-12 MCV (test code = 521822) 89.6 fL 78.0-100.0 Platelet Count (test code = 533051) 285 K/uL 150-400 Eos % (test code = 303781) 1 % 0-5 Absolute Baso (test code = 161232) 0.0 K/uL 0.0-0.1 WBC (test code = 655558) 9.3 K/uL 4.0-10.5 Absolute [place] (test code = 220120) 0.7 K/uL 0.1-1.0 MCH (test code = 740972) 31.1 pg 26.0-34.0 MCHC (test code = 990110) 34.7 g/dL 30.0-36.0 Baso % (test code = 976398) 0 % 0-1 Absolute Lymph (test code = 410006) 3.3 K/uL 0.7-4.0 MPV (test code = 037991) 10.8 fL 8.6-12.4 Hemoglobin A1c with [id number] 00:00:00 Test Item Value Reference Range Comments Estimated Average Glucose (test code = 192923) 128 mg/dL < 117 Hemoglobin A1C (test code = 154097) 6.1 % <5.7 [id number] 00:00:00 Test Item Value Reference Range Comments PSA (test code = 363477) 3.47 ng/mL <=4.00 INACT-Testosterone, Free and [id number] 00:00:00 Test Item Value Reference Range Comments Testosterone, Tot (Males), IA (test code = 402 ng/dL 250-8 27 569503) Sex Hormone Binding Globulin (test code = 012857) 26 nmol/L 22-77 Testosterone, Free (Calc) (test code = 259320) 93.2 pg/mL 4 7.0-244.0 Testosterone, % Free (Calc) (test code = 613413) 2.3 % 1.6-2.9 Microalbumin, Random Ur (w/o Creat)2016-07-27 00:00:00 Test Item Value Reference Range Comments Microalbumin (test code = 774079) 0.7 mg/dL Not estab CMP with Estimated [id number] 00:00:00 Test Item Value Reference Range Comments Est GFR, NonAfrican Filipino (test code = 752170) 73 mL/min >=60 Creatinine (test code = 581837) 1.11 mg/dL 0.70-1.33 Sodium (test code = 573398) 139 mmol/L 135-146 Chloride (test code = 860407) 102 mmol/L 98-110 Potassium (test code = 712261) 4.3 mmol/L 3.5-5.3 Alkaline Phosphatase (test code = 787298) 63 U/L 40-115 Bilirubin, Total (test code = 801629) 0.6 mg/dL 0.2-1.2 AST/SGOT (test code = 055044) 27 U/L 10-35 Total Protein (test code = 457494) 7.1 g/dL 6.1-8.1 Albumin (test code = 899596) 4.5 g/dL 3.6-5.1 CO2 (test code = 899989) 30 mmol/L 20-31 Calcium (test code = 286589) 10.2 mg/dL 8.6-10.3 BUN (test code = 307369) 16 mg/dL 7-25 Glucose (test code = 924610) 83 mg/dL 65-99 Est GFR, (test code = 532679) 84 mL/min > =60 ALT/SGPT (test code = 718217) 63 U/L 9-46 [id number] 00:00:00 Test Item Value Reference Range Comments TSH (test code = 122888) 2.224 uIU/mL 0.350-4.500 Assessments Condition Name Status Diagnosis Date Treating Clinici an Personal history of other venous Active thrombosis and embolism Benign prostatic hyperplasia with lower Active urinary tract symp Frequency of micturition Active Hyperlipidemia, unspecified Active Personal history of pulmonary embolism Active Personal history of other venous Active thrombosis and embolism Dental caries, unspecified Active Acute bronchospasm Active Fever, unspecified Active Pain, unspecified Active Pneumonia, unspecified organism Active Acute maxillary sinusitis, unspecified Active Pain of left hip joint Active 2018-12-26 08:25:12 Gluteal tendinitis Active 2018-12-26 08:45:13 [facility] (current) use of Active anticoagulants [place] heart disease of [place] art Active w [facility] pctrs Acute embolism and [place] unsp deep Active veins of r low extrem Acute embolism and [place] unsp deep vn Active unsp lower extremity Pain of left hip joint Active 2018-11-14 08:26:43 Gluteal tendinitis Active 2018-11-14 11:04:18 Hip pain Active 2018-09-26 11:49:29 Pain in left hip Active Abnormal weight loss Active Parkinson's disease Active [place] heart disease of [place] art Active [facility] pctrs Body mass index (BMI) 34.0-34.9, adult Active Tinea cruris Active Candidiasis of skin and nail Active Epidermal cyst Active Fatty (change of) liver, not elsewhere Active classified Allergy status to oth drug/meds/biol Active subst status Morbid (severe) obesity due to excess Active calories Body mass index (BMI) 40.0-44.9, adult Active Allergy status to oth drug/meds/biol Active subst status [facility] (current) use of Active anticoagulants [place]scl heart disease of [place] art Active w [facility] pctrs Body mass index (BMI) 40.0-44.9, adult Active Acute maxillary sinusitis, unspecified Active Allergic rhinitis due to pollen Active Cough Active Body mass index (BMI) 40.0-44.9, adult Active Chest pain, unspecified Active Allergic rhinitis, unspecified Active Morbid (severe) obesity due to excess Active calories Body mass index (BMI) 40.0-44.9, adult Active Acute maxillary sinusitis, unspecified Active Bronchitis, not specified as acute or Active chronic Cough Active Body mass index (BMI) 40.0-44.9, adult Active Calculus of bile duct w/o cholangitis Active or cholecyst w/o obst Lumbago with sciatica, left side Active Other obesity due to excess calories Active Body mass index (BMI) 35.0-35.9, adult Active Low back pain Active Unspecified abdominal pain Active Nausea Active Diarrhea, unspecified Active Encounters Start End Encounter Admission Attending Care Care Encounter Date/Time Date/Time Type Type Clinicians Facility Department ID 2020-04-08 2020-04-08 Outpatient Clemente [facility] FA [id number] 16:30:00 16:30:00 Herman Paul [id number] s [id number] and [id number] [facility], 2019-08-15 2019-08-15 Outpatient Clemente [facility] 58 [id number] 12:30:00 12:30:00 Herman Paul [id number] s [id number] and [id number] [facility], 2019-07-08 2019-07-08 Outpatient Clemente [facility] 54 [id number] 16:00:00 16:00:00 Herman Paul [id number] s [id number] and [id number] [facility], 2018-12-26 2018-12-26 Genaro Price [id number] 19 00:00:00 00:00:00 Mehdi DO: [facility] [address] [place] [address], Ph. 2018-11-26 2018-11-26 Outpatient Clemente [facility] A6 [id number] 13:30:00 13:30:00 Herman Paul [id number] s [id number] and [id number] [facility], 2018-11-14 2018-11-14 Genaro Price [id number] 19 00:00:00 00:00:00 Mehdi, DO: [facility] [address] [place] [address], Ph. 2018-09-26 2018-09-26 Genaro Price [id number] 19 00:00:00 00:00:00 Mehdi: [facility] [address] [place] [address], Ph. 2018-09-25 2018-09-25 Outpatient Clemente [facility] 9D [id number] 14:15:00 14:15:00 [facility] Children [id number] s [id number] and [id number] [facility], 2018-07-26 2018-07-26 Outpatient Geraldo [facility] 4 [id number] 09:30:00 09:30:00 [facility] [id number] s [id number] and [id number] [facility] 2018-02-05 2018-02-05 Outpatient Clemente [facility] 56 [id number] 14:30:00 14:30:00 [facility] [id number] s [id number] and [id number] [facility] 2018-01-20 2018-01-20 Outpatient Clemente [facility] 44 [id number] 15:30:00 15:30:00 [facility] Children [id number] s [id number] and [id number] [facility] 2018-01-02 2018-01-02 Outpatient Clemente [facility] 28 [id number] 13:45:00 13:45:00 [facility] [id number] s [id number] and [id number] [facility] 2017-10-15 2017-10-15 Outpatient Clemente [facility] [id number] 10:00:00 10:00:00 [facility] [id number] s [id number] and [id number] [facility] 2017-07-08 2017[facility]07-[facility] [id number] 09:45:00 09:45:00 Herman Paul [id number] s [id number] and [id number] [facility], [place] 2017-03-12 2017-03-12 [facility] [id number] 14:00:00 14:00:00 Herman Paul [id number] s [id number] and [id number] [facility] [place] 2017-03-02 2017-03-02 [facility] 9B [id number] 09:15:00 09:15:00 Herman Paul [id number] s [id number] and [id number] [facility], [place] Immunizations Ordered Immunization Filled Immunization Date Status Commen ts Refusal Reason Name Name Tdap 2012-08-11 Completed 00:00:00 Social History Smoking Status Start Date Stop Date Current Some Day Smoker Vital Signs Vital Name Observation Time Observation Value Comments BP Diastolic 2018-12-26 00:00:00 63 mm[Hg] Height 2018-12-26 00:00:00 71 [in_i] BMI (Body Mass Index) 2018-12-26 00:00:00 32.1 kg/m2 BP Systolic 2018-12-26 00:00:00 118 mm[Hg] Body Weight 2018-12-26 00:00:00 230 [lb_av] Body Weight 2018-11-14 00:00:00 233 [lb_av] BP Diastolic 2018-11-14 00:00:00 77 mm[Hg] Height 2018-11-14 00:00:00 71 [in_i] BMI (Body Mass Index) 2018-11-14 00:00:00 32.5 kg/m2 BP Systolic 2018-11-14 00:00:00 121 mm[Hg] Hospital Discharge Instructions 1. Pain of left hip joint 2. Gluteal tendinitis Discussion Note: None recorded. Patient educational handouts: No information available.1. Pain of left hip joint 2. Gluteal tendinitis Discussion Note: None recorded. Patient educational h andouts: No information available.1. Hip pain hip pain: care instructions XR, hip, unilateral, 2 or 3 view Discussion Note: None recorded.
== END ==
LOC: OD 07:25
PROVIDERS: ATTEND Internal Medicine Cardiovascular Disease
DX: R07.9 Chest pain, unspecified (principal); E78.2 Mixed hyperlipidemia; R94.5 Abnormal results of liver function studies; I10 Essential (primary) hypertension; Z79.899 Other long term (current) drug therapy; E66.01 Morbid (severe) obesity due to excess calories; E88.81 Metabolic syndrome and other insulin resistance
CPT/HCPCS: 36415; 80048; 80061; 80076; 83525; 84443; 85027; 86141